=== PATIENT | male | born 1995 | race Two or more races ===

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

== ENCOUNTER 2017-03-09 18:01 | Emergency (ER) | payer OTHER ==
[2017-03-09 19:06] VITALS: RESP 18
[2017-03-09 19:26] VITALS: BP 120/75; PULSE 71; TEMP 96.7; O2SAT 98
[2017-03-09 19:34] LABS: BASOPHILS % (AUTO) 1 % (0-3); EOSINOPHILS % (AUTO) 3 % (0-9); HEMATOCRIT 41 % (39-53); MEAN CORPUSCULAR HGB CONC 36.4 gm/dl (32.0-36.0); MEAN CORPUSCULAR VOLUME 91 fL (80-100); MONOCYTES % (AUTO) 6.7 % (0-12)
[2017-03-09 19:46] LABS: ALBUMIN 4.2 gm/dl (3.4-5.0); CALCIUM 9.1 mg/dl (8.5-10.1); POTASSIUM 4.1 mMol/L (3.5-5.1)
[2017-03-09] MEDS ORDERED: CEPHALEXIN 250 MG/5 ML BOTTLE PO ONE (19:53)
[2017-03-09] MEDS ORDERED: CEPHALEXIN 250 MG/5 ML BOTTLE ONE (19:55)
== END 2017-03-09 19:59 | disposition home or self-care (01) ==
LOC: ED 18:01
DX: J01.90 Acute sinusitis, unspecified (principal)
CPT/HCPCS: 36415; 80053; 85025; 86308; 87430; 99282; 99283

== ENCOUNTER 2017-07-10 14:09 | Emergency (ER) | payer OTHER ==
[2017-07-10 14:10] VITALS: O2SAT 98
[2017-07-10] MEDS ORDERED: ONDANSETRON 4 MG ODT BU ONE (14:30)
[2017-07-10] MEDS ORDERED: ONDANSETRON 4 MG ODT ONE (14:31)
[2017-07-10 14:50] VITALS: BP 144/78; PULSE 90; RESP 16; TEMP 98.3
== END 2017-07-10 15:00 | disposition home or self-care (01) ==
LOC: ED 14:09
DX: K52.9 Noninfective gastroenteritis and colitis, unspecified (principal)
CPT/HCPCS: 99282; A9270-GY